=== PATIENT | female | born 1975 | race Asian ===

== ENCOUNTER → 2020-06-15 | Outpatient (CLI) | payer MEDICAID, OTHER ==
[~2020-06-15] MED LIST: NAPR-685 PO
[2020-06-15 11:10] LABS: BASOPHILS # (AUTO) 0.02 x10^3/uL (0-0.1); BASOPHILS % (AUTO) 1 % (0-1); EOSINOPHILS % (AUTO) 2 % (1-7); LYMPHOCYTES # (AUTO) 1.87 x10^3/uL (1-3.4); LYMPHOCYTES % (AUTO) 42 % (22-44); MD NO; MEAN CORPUSCULAR HEMOGLOBIN 32.2 pg (27.0-34.8); MEAN CORPUSCULAR HGB CONC 32.8 g/dL (32.4-35.8); MEAN CORPUSCULAR VOLUME 98.1 fL (80-100); MEAN PLATELET VOLUME 7.9 fL (7.4-10.4); MONOCYTES # (AUTO) 0.33 x10^3/uL (0.2-0.8); MONOCYTES % (AUTO) 7 % (2-9); NEUTROPHILS # (AUTO) 2.18 x10^3/uL (1.8-6.8); NEUTROPHILS % (AUTO) 49 % (42-75); PLATELET COUNT 271 x10^3/uL (130-400); RED BLOOD COUNT 4.27 x10^6/uL (3.82-5.3); RED CELL DISTRIBUTION WIDTH 12.8 % (9.6-15.2)
[2020-06-15 11:22] LABS: ANION GAP 6 mmol/L (5-15); CHLORIDE 108 mmol/L (98-107); CREATININE 0.64 mg/dL (0.55-1.02); INTERNATIONAL NORMALIZED RATIO 0.98 (0.93-1.1); PROTHROMBIN TIME 10.1 Seconds (9.6-11.5)
[2020-06-15 11:23] LABS: MICROSCOPIC AUTO
== END | disposition home or self-care (01) ==
LOC: STAR 09:43
PROVIDERS: ATTEND Neurological Surgery
DX: Z01.818 Encounter for other preprocedural examination (principal); M51.36 Other intervertebral disc degeneration, lumbar region
CPT/HCPCS: 36415; 71046; 80048; 81001; 85025; 85610; 85730; 87086; 93005

== ENCOUNTER → 2020-06-23 | Outpatient (CLI) | payer MEDICAID | END | disposition home or self-care (01) | LOC: STAR 14:15 | PROVIDERS: ATTEND Anesthesiology | DX: Z01.812 Encounter for preprocedural laboratory examination (principal); Z20.828 Contact with and (suspected) exposure to other viral communicable diseases | CPT/HCPCS: 36415; 87635 ==

== ENCOUNTER → 2020-06-30 | Outpatient (CLI) | payer MEDICAID ==
[2020-06-27 12:45] VITALS: BP 112/75
[2020-06-27 12:47] LABS: HCG UR SG 1.013 (1.003-1.030)
[~2020-06-30] VITALS: Ht 147.3 cm; Wt 40.0 kg
[~2020-06-30] MED LIST changes: +BACITRACIN 50,000 UNIT ONE; +BUPIVACAINE/PF 0.25% ONE; +CHLORHEXIDINE 15 ML UDC MM ONE; +CHLORHEXIDINE 15 ML UDC ONE; +EPINEPHRINE 1 MG/ML, 1ML ONE; +FENTANYL PF 250 MCG/5ML ONE; +LACTATED RINGERS 1,000 ML IV SCH; +MIDAZOLAM 1 MG/ML, 2ML ONE
== END | disposition home or self-care (01) ==
LOC: OUT 06-27 10:02 → EDSTATUS 06-27 15:30 → SDC 08:00
PROVIDERS: ATTEND Neurological Surgery
DX: Z01.818 Encounter for other preprocedural examination (principal); M51.36 Other intervertebral disc degeneration, lumbar region
CPT/HCPCS: 81025; J0171; J2250; J3010; J3490; J7120